=== PATIENT | female | born 2000 | race Caucasian/White ===

== ENCOUNTER 2024-12-15 17:01 | Emergency (ER) | payer MEDICAID, OTHER ==
[~2024-12-15] VITALS: Ht 162.6 cm; Wt 47.7 kg
[~2024-12-15 17:01] MED LIST: IBUP-45 PO
[2024-12-15 17:04] VITALS: TEMP 99.7
[2024-12-15] MEDS ORDERED: ACET-3385 PO (17:12)
[2024-12-15] MEDS ORDERED: IBUP-1492 PO (17:12)
[2024-12-15] MEDS ORDERED: AMOX250T PO (17:12)
[2024-12-15] MEDS: TRANEXAMIC ACID 1,000 MG/10 ML VIAL TP ONE (18:49)
[2024-12-15] MEDS: LIDOCAINE 1%/EPI 1:200,000/PF 10 ML VIAL SQ ONE (18:49)
[2024-12-15 20:40] VITALS: BP 111/78; PULSE 79; RESP 18; O2SAT 99
== END 2024-12-15 20:44 | disposition home or self-care (01) ==
LOC: EMS 17:01
DX: L76.22 Postprocedural hemorrhage of skin and subcutaneous tissue following other procedure (principal); K08.89 Other specified disorders of teeth and supporting structures; Z79.899 Other long term (current) drug therapy
CPT/HCPCS: 99283; 96372; J3490 ×2